=== PATIENT | female | born 1985 | race Caucasian/White ===

== ENCOUNTER 2021-02-17 10:03 | Emergency (ER) | payer OTHER ==
[~2021-02-17] VITALS: Ht 167.6 cm; Wt 77.9 kg
[2021-02-17 10:03] VITALS: BP 112/69
[2021-02-17] MEDS ORDERED: PRED50TA PO (10:55)
[2021-02-17] MEDS ORDERED: ALBU2.5V8 IH (10:55)
--- NOTE | 2021-02-17 10:56 | PHYS DOC ---
Past History Past Surgical History: No Surgical History (CAESAR BARRERA WASH [employer] PERSON) Alcohol Use: None (CAESAR BARRERA W[employer] PERSON) Adult General Chief Complaint Chief Complaint: CONGESTION HPI HPI Patient is a 35-year-old female patient who presents the ED today complaining of a productive cough with nasal congestion, symptoms have been going on intermittently for 3 weeks. Patient states she was seen by the PCP last week diagnosed with sinusitis and was given cephalexin which she just finished. Patient denies any fever. Denies any chest pain or shortness of breath. Patient is in the ED with the son with similar symptoms (CAESAR BARRERA [employer] PERSON) Review of Systems Review of Systems Constitutional: Denies fever or chills [] Eyes: Denies change in visual acuity, redness, or eye pain [] HENT: Reports nasal congestion, denies sore throat [] Respiratory: Reports cough, denies shortness of breath [] Cardiovascular: No additional information not addressed in HPI [] GI: Denies abdominal pain, nausea, vomiting, bloody stools or diarrhea [] : Denies dysuria or hematuria [] Musculoskeletal: Denies back pain or joint pain [] Integument: Denies rash or skin lesions [] Neurologic: Denies headache, focal weakness or sensory changes [] All other systems were reviewed and found to be within normal limits, except as documented in this note. (CAESAR BARRERA [employer] PERSON) Allergies Allergies Allergies Coded Allergies Type Severity Reaction Last Updated Verified No Known Drug Allergies 02/17/21 No (CAESAR BARRERA [employer]ERSON) Physical Exam Physical Exam Constitutional: Well developed, well nourished, no acute distress, non-toxic appearance. [] HENT: Normocephalic, atraumatic, bilateral external ears normal, oropharynx moist, no oral exudates, nose normal. [] Eyes: PERRLA, EOMI, conjunctiva normal, no discharge. [] Neck: Normal range of motion, no tenderness, supple, no stridor. [] Cardiovascular:Heart rate regular rhythm, no murmur [] Lungs & Thorax: Bilateral breath sounds clear to auscultation [] Abdomen: Bowel sounds normal, soft, no tenderness, no masses, no pulsatile masses. [] Skin: Warm, dry, no erythema, no rash. [] Back: No tenderness, no CVA tenderness. [] Extremities: No tenderness, no cyanosis, no clubbing, ROM intact, no edema. [] Neurologic: Alert and oriented X 3, normal motor function, normal sensory function, no focal deficits noted. [] Psychologic: Affect normal, judgement normal, mood normal. [] (CAESAR BARRERA APRN) Current Patient Data Vital Signs Vital Signs Date Time Temp Pulse Resp B/P (MAP) Pulse Ox O2 Delivery O2 Flow Rate FiO2 02/17/21 10:03 98.0 80 16 112/69 (83) 97 Room Air (CAESAR BARRERA APRN) EKG EKG [] (CAESAR BARRERA APRN) Radiology/Procedures Radiology/Procedures [] (CAESAR BARRERA APRN) Heart Score C/O Chest Pain: N/A Risk Factors: Risk Factors: DM, Current or recent (<one month) smoker, HTN, HLP, family history of CAD, obesity. Risk Scores: Risk Factors: DM, Current or recent (<one month) smoker, HTN, HLP, family history of CAD, obesity. (CAESAR BARRERA APRN) Course & Med Decision Making Course & Med Decision Making Pertinent Labs and Imaging studies reviewed. (See chart for details) This is a 35-year-old female patient presented to the ED today with cough and nasal congestion, symptoms have been going on for 3 weeks, she just finished cephalexin for sinusitis. Physical exam is benign. Encourage her to use breathing treatments at home. Give her prednisone for 5 days. OTC remedies also recommended. (CAESAR BARRERA APRN) Dragon Disclaimer Dragon Disclaimer This electronic medical record was generated, in whole or in part, using a voice recognition dictation system. (CAESAR BARRERA [employer]) Attending Co-Sign The patient was seen and interviewed as well as examined at the bedside. The chart was reviewed. The case was discussed. Agree with the plan of care. (DELILAH BLAKE DO) Departure Departure: Impression: Primary Impression: Acute bronchitis Additional Impression: URI (upper respiratory infection) Disposition: HOME / SELF CARE / HOMELESS Condition: STABLE Referrals: KLARISSA TRUJILLO (PCP) follow up with your doctor in 1-2 weeks Patient Instructions: Acute Bronchitis, Upper Respiratory Infection, Adult, [id number] Additional Instructions: You were evaluated in the emergency room, your symptoms are likely viral. Use the prescribed medications as ordered. Follow-up with your doctor in 1 to 2 we eks Scripts Albuterol Sulfate (PROAIR HFA INHALER) 8.5 Gm Hfa.aer.ad 2 PUFF IH PRN Q4-6HRS PRN for wheezing for 21 Days, #1 INHALER 0 Refills Prov: CAESAR BARRERA APRN 02/17/21 Prednisone (PREDNISONE) 50 Mg Tablet 1 TAB PO DAILY, #5 TAB Prov: CAESAR BARRERA APRN 02/17/21 Problem Qualifiers Primary Impression: Acute bronchitis Bronchitis organism: unspecified organism Qualified Codes: J20.9 - Acute bronchitis, unspecified Additional Impression: URI (upper respiratory infection) URI type: unspecified URI Qualified Codes: J06.9 - Acute upper respiratory infection, unspecified CAESAR BARRERA APRN Feb 17, 2021 10:56 DELILAH BLAKE DO Feb 17, 2021 14:54
== END 2021-02-17 11:15 | disposition home or self-care (01) ==
LOC: ER 10:03
DX: J20.9 Acute bronchitis, unspecified (principal); J06.9 Acute upper respiratory infection, unspecified
CPT/HCPCS: 99283